=== PATIENT | male | born 1945 | race Caucasian/White ===

== ENCOUNTER 2018-06-13 09:38 | Emergency (ER) | payer MEDICARE, OTHER ==
[~2018-06-13] VITALS: Ht 177.8 cm; Wt 83.0 kg
[~2018-06-13 09:38] MED LIST: HYDROCHLOROTHIA25 MG PO; LISINOPRIL10 MG PO; METFORMIN HCL850 MG PO; NOVOLIN 70100 UNITS/ SUB-Q
[2018-06-13] MEDS ORDERED: LANTUS100 UNITS/ SUB-Q (09:58)
== END 2018-06-13 10:08 | disposition home or self-care (01) ==
LOC: ED 09:38
DX: K08.89 Other specified disorders of teeth and supporting structures (principal)